=== PATIENT | male | born 1970 ===

== ENCOUNTER 2020-07-09 10:26 | Inpatient (IN) | payer OTHER ==
[~2020-07-09] VITALS: Ht 182.9 cm; Wt 177.0 kg
[2020-07-19] MEDS ORDERED: HYOSCYAMINE0.125 M1 SL (09:19)
[2020-07-19] MEDS ORDERED: INTESTINEX680 M1 PO (09:19)
[2020-07-19] MEDS ORDERED: OXYC1TAB9 PO (09:19)
[2020-07-19] MEDS ORDERED: DICLOFENAC SODI75 MG PO (09:19)
== END 2020-07-19 11:27 | disposition home or self-care (01) | DRG 330 ==
LOC: SURG 07-16 05:50 → O/R 07-16 05:50 → SURH 07-16 05:50 → SURG 07-16 19:00
PROVIDERS: ADMIT Surgery; ATTEND Surgery
PROC: 0W3P8ZZ Control Bleeding in Gastrointestinal Tract, Via Natural or Artificial Opening Endoscopic (ICD-10-PCS; 2020-07-16)
PROC: 0DJD8ZZ Inspection of Lower Intestinal Tract, Via Natural or Artificial Opening Endoscopic (ICD-10-PCS; 2020-07-16)
PROC: 0DBN4ZZ Excision of Sigmoid Colon, Percutaneous Endoscopic Approach (ICD-10-PCS; principal; 2020-07-16 16:00)
DX: K57.32 Diverticulitis of large intestine without perforation or abscess without bleeding (principal); K62.5 Hemorrhage of anus and rectum; K91.89 Other postprocedural complications and disorders of digestive system; Y83.2 Surgical operation with anastomosis, bypass or graft as the cause of abnormal reaction of the patient, or of later complication, without mention of misadventure at the time of the procedure